=== PATIENT | female | born 1960 | race Caucasian/White ===

== ENCOUNTER 2017-03-27 11:57 | Inpatient (IN) | payer MEDICAID ==
[~2017-03-27] VITALS: Ht 170.2 cm; Wt 74.4 kg
[2017-03-27] VITALS (12 sets, daily range): BP systolic 113–153; BP diastolic 73–88
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
--- NOTE | ~2017-03-27 | CON ---
[place], [place] REPORT OF CONSULTATION NAME: ANA WONG UNIT #: [id number] ROOM: 412 DOCTOR: RADHA HAZEL MD BIRTHDATE: [birth year] DOS: 03/28/2017 CHIEF COMPLAINT: Chest pain. HISTORY OF PRESENT ILLNESS: The patient is a 56-year-old woman who has no previous history of coronary artery disease. For the last 2 months, she has had chest pain. She states that she fell down some stairs and injured her back and face. At about that same time, she began noticing the chest pain. The chest pain comes and goes and can lasts up to hours at a time. It is made worse by deep breathing and cough. Nothing much makes it better. It is not associated with diaphoresis, nausea, lightheadedness or syncope. Yesterday, the patient was contemplating suicide but decided against it and came to the Emergency Room instead. In the Emergency Room, she mentioned her chest pain and was therefore hospitalized for suicidal ideation and chest pain. Thus far, she has ruled out for an acute myocardial infarction and her EKG shows no acute changes. Enzymes have been negative. PAST MEDICAL HISTORY: Positive for the followin. Essential hypertension. 2. Hypothyroidism, on replacement. 3. Depression with bipolar disorder. 4. No previous history of myocardial infarction, stroke, diabetes or known hyperlipidemia. FAMILY HISTORY: Negative for early coronary artery disease. REVIEW OF SYSTEMS: The patient denies diplopia or loss of vision. She denies syncope, but she does have episodes of lightheadedness. She denies nausea or vomiting. She denies fevers, chills, sweats or recent weight change. She does admit to depression and anxiety. She denies any focal weakness. She denies bleeding from her nose or mouth. She denies blood in her stools or urine. She denies change in bowel or bladder habits. She denies any skin rashes. She states that she does occasionally get some ankle swelling, but denies any blood clots in her legs. She denies claudications. The remainder of the review of systems is negative except as noted above. SOCIAL HISTORY: The patient smokes about a half pack a day and does consume alcohol routinely. MEDICATIONS: Prior to admission included olopatadine eyedrops twice a day, amitriptyline 50 mg at bedtime, aripiprazole 15 mg at bedtime, vitamin D 1000 units daily, diazepam 5-10 mg t.i.d. as needed, iron sulfate 325 mg daily, hydroxyzine 25 mg t.i.d. p.r.n., lamotrigine 100 mg b.i.d., levothyroxine 112 mcg daily, losartan with hydrochlorothiazide 50/12/5 one daily, olanzapine 10 mg daily, omeprazole 20 mg daily and sertraline 200 mg at bedtime. ALLERGIES: The patient lists allergies to PENICILLINS and CODEINE. PHYSICAL EXAMINATION: [place], [place] REPORT OF CONSULTATION NAME: ANA WONG UNIT #: [id number] ROOM: 412 DOCTOR: RADHA HAZEL MD BIRTHDATE: [birth year] GENERAL: The patient is well-nourished white female who is awake, alert and oriented. VITAL SIGNS: Pulse is 92 and regular, blood pressure is 162/90. She is afebrile. She weighs 74.4 kg and has a body mass index of 25.7. HEENT: Normocephalic. She does have a bruise over her right cheek. Extraocular muscles are intact. Pupils are equal, round and react to light. The oral mucosa is moist. Tongue is midline. NECK: Supple. She has no jugular distention. Carotids are full. She has no bruits. She has no neck or supraclavicular masses. LUNGS: Respirations are unlabored. Her chest is clear to auscultation and percussion with decreased breath sounds at the bases and mild expiratory prolongation, but no wheezes or rales. Her chest wall is tender over the left anterior parasternal region and this does reproduce most of her chest pains. CARDIOVASCULAR: Heart has a regular rhythm with a soft S4 gallop, but no S3 or murmur. The PMI is not displaced. There is no precordial heave, lift or thrill. ABDOMEN: Soft and normally active without masses, organomegaly or bruits. EXTREMITIES: Showed no edema. Peripheral pulses were palpable in the feet. LABORATORY DATA: Her electrocardiogram shows sinus tachycardia with an otherwise normal tracing. Chest x-ray was considered normal. Hemoglobin is 13 with hematocrit 38.7. There are 6100 white cells, 308,000 platelets. Sodium is 139, potassium 4.3, BUN 12, creatinine 0.57. TSH was less than 0.005. Troponin levels have been negative x 3. IMPRESSION: 1. Atypical chest pain which is reproduced by palpation and increased by cough and deep breath, almost certainly this is musculoskeletal in origin. 2. Hypertension. 3. Hyperlipidemia. 4. Ongoing cigarette abuse. 5. Depression and anxiety. PLAN: I think that it is unlikely that she has coronary artery disease, but she does have risk factors. We will therefore proceed with an exercise myocardial stress test. If that is normal, then I would reassure the patient and try to treat her pain symptomatically. She certainly should stop smoking. Further evaluation per the psych service will also be helpful. I thank the hospitalist for asking our advice regarding her care. [place], [place] REPORT OF CONSULTATION NAME: ANA WONG UNIT #: [id number] ROOM: 412 DOCTOR: RADHA HAZEL MD BIRTHDATE: [birth year] RADHA HAZEL MD CM:CONSTR:REPORT OF CONSULTATION 1200 03/28/17 1221 interface
[2017-03-27 12:44] LABS: BASO % 0.5 % (0.0-1.0); EOS # 0.2 10*3/uL (0.0-0.4); EOS % 1.8 % (1.0-4.0); HEMOGLOBIN 12.3 g/dl (12.0-16.0); LYMPH # 4.5 10*3/uL (1.3-4.4); LYMPH % 52.8 % (27.0-41.0); MEAN CELL VOLUME 92.3 fl (81.0-99.0); MEAN CORPUSCULAR HGB 30.7 pg (27.0-31.0); MEAN CORPUSCULAR HGB CONC 33.2 g/dl (33.0-37.0); MEAN PLATELET VOLUME 9.9 fl (9.6-12.3); MONO # 0.6 10*3/uL (0.1-1.0); MONO % 6.7 % (3.0-9.0); NEUT # 3.2 10*3/uL (2.3-7.9); PLATELET COUNT AUTOMATED 340 10*3/uL (130-400); RED BLOOD COUNT 4.01 10*6/uL (4.10-5.10); RED CELL DISTRI WIDTH 14.2 % (0-14.5); WHITE BLOOD COUNT 8.5 10*3/uL (4.8-10.8)
[2017-03-27 12:53] LABS: ACT PARTIAL THROMBO TIME 23.5 SECONDS (20.8-31.5)
[2017-03-27 13:04] LABS: ALBUMIN 3.4 gm/dl (3.1-4.5); ALKALINE PHOSPHATASE 129 U/L (45-117); BUN 15 mg/dl (7-24); CHLORIDE 110 mmol/L (98-107); CREATININE 0.71 mg/dL (0.55-1.02); POTASSIUM 3.8 mmol/L (3.5-5.1); SGOT/AST 36 IU/L (3-35); SGPT/ALT 39 U/L (12-78); SODIUM 143 mmol/L (136-145); TOTAL PROTEIN 7.3 gm/dL (6.4-8.2)
[2017-03-27 13:06] LABS: TROPONIN I < 0.015 ng/ml (<0.045)
[2017-03-27 13:10] LABS: URINE AMPHETAMINES < 1000 (1000ng/ml); URINE BARBITURATES < 200 (200ng/ml); URINE BENZODIAZEPINES > 200 (200ng/ml); URINE CANNABINOIDS (THC) < 50 (50ng/ml); URINE COCAINE < 300 (300ng/ml); URINE METHADONE < 300 (300ng/ml); URINE OPIATES < 300 (300ng/ml)
[2017-03-27 13:11] LABS: URINE PHENCYCLIDINE < 25 (25ng/ml)
[2017-03-27 13:12] LABS: ACETAMINOPHEN (TYLENOL) < 2.0 ug/ml (10-30)
[2017-03-27 13:42] LABS: BILIRUBIN NEGATIVE (NEGATIVE); BLOOD NEGATIVE (NEGATIVE); CLARITY CLEAR (CLEAR); COLOR YELLOW (YELLOW); GLUCOSE NEGATIVE (NEGATIVE); KETONE NEGATIVE (NEGATIVE); LEUKO ESTERASE NEGATIVE (NEGATIVE); NITRITE NEGATIVE (NEGATIVE); PH 5.5 (5.0-9.0); SPECIFIC GRAVITY 1.015 (1.005-1.030); UROBILINOGEN 0.2 E.U./dl (0.2-1.0)
[2017-03-27 13:56] LABS: BACTERIA TRACE
[2017-03-27] MEDS ORDERED: LEVOTHYROXINE100 MC1 PO (18:14)
[2017-03-27] MEDS ORDERED: FEROSUL325 MG PO (18:15)
[2017-03-27] MEDS ORDERED: VITAMIN D-32000 UNIT PO (18:15)
[2017-03-27] MEDS ORDERED: OMEPRAZOLE D/R20 MG PO (18:16)
[2017-03-27] MEDS ORDERED: HYDROXYZINE PAM25 M1 PO (18:16)
[2017-03-27] MEDS ORDERED: DIAZEPAM10 M1 PO (18:17)
[2017-03-27] MEDS ORDERED: LOSARTAN-HCTZ1 EACH PO (18:17)
[2017-03-27] MEDS ORDERED: LAMOTRIGINE100 MG PO (18:17)
[2017-03-27] MEDS ORDERED: OLOPATADINE HCL5 ML OD (18:18)
[2017-03-27] MEDS ORDERED: AMITRIPTYLINE50 MG PO (18:18)
[2017-03-27] MEDS ORDERED: OLANZAPINE10 MG PO (18:18)
[2017-03-27] MEDS ORDERED: SERTRALINE HYD100 MG PO ×2 (18:19→21:37)
[2017-03-27] MEDS ORDERED: DOXEPIN25 MG PO (21:39)
[2017-03-27] MEDS ORDERED: BUTALB-ACETAMI1 EACH PO (21:41)
[2017-03-27] MEDS ORDERED: ARIPIPRAZOLE15 MG PO (21:44)
[2017-03-27] MEDS ORDERED: CLONAZEPAM0.5 M2 PO (21:45)
[2017-03-27] MEDS ORDERED: LEVOXYL112 MCG PO (21:49)
[2017-03-27] MEDS ORDERED: ZYPREXA10 M1 PO (21:54)
[2017-03-28] VITALS: BP 138/72
[2017-03-28 04:00] VITALS: BP 156/92
[2017-03-28 06:25] LABS: BASO % 0.2 % (0.0-1.0); HEMATOCRIT 38.7 % (37.0-47.0); LYMPH % 16.8 % (27.0-41.0); MEAN CORPUSCULAR HGB 31.3 pg (27.0-31.0); MEAN CORPUSCULAR HGB CONC 33.6 g/dl (33.0-37.0); MEAN PLATELET VOLUME 10.5 fl (9.6-12.3); MONO # 0.1 10*3/uL (0.1-1.0); MONO % 0.8 % (3.0-9.0); NEUT % 81.7 % (47.0-73.0); PLATELET COUNT AUTOMATED 308 10*3/uL (130-400); RED BLOOD COUNT 4.16 10*6/uL (4.10-5.10); RED CELL DISTRI WIDTH 14.2 % (0-14.5); WHITE BLOOD COUNT 6.1 10*3/uL (4.8-10.8)
[2017-03-28 06:35] LABS: BUN 12 mg/dl (7-24); CHLORIDE 108 mmol/L (98-107); CREATININE 0.57 mg/dL (0.55-1.02); PHOSPHOROUS 2.3 mg/dL (2.5-4.9); POTASSIUM 4.3 mmol/L (3.5-5.1); SODIUM 139 mmol/L (136-145)
[2017-03-28 06:43] LABS: CHOLESTEROL 263 mg/dL (<200); HDL CHOLESTEROL 56 mg/dl (40-60); LDL CHOLESTEROL 185 mg/dL (9-159); TRIGLYCERIDES 112 mg/dl (<150); VLDL CHOLESTEROL 22 mg/dL (6-40)
[2017-03-28 07:55] LABS: THYROID STIM HORMONE (HS) < 0.005 uIU/ml (0.358-4.75)
[2017-03-28 08:00] VITALS: BP 162/90
[2017-03-28] MEDS ORDERED: VALIUM10 MG PO (09:22)
[2017-03-28 12:00] VITALS: BP 157/61
[2017-03-28] MEDS ORDERED: DULOXETINE HCL30 MG PO (15:51)
[2017-03-28] MEDS ORDERED: PRAVACHOL20 MG PO (15:53)
[2017-03-28 16:00] VITALS: BP 150/81
== END 2017-03-28 17:47 | disposition home or self-care (01) | DRG 205 ==
LOC: ED 11:57 → 4E 19:58 → EDHOLD 19:58 → 4E 20:35
PROVIDERS: Emergency Medicine; Student in an Organized Health Care Education/Training Program
PROC: 4A02XM4 Measurement of Cardiac Total Activity, External Approach (ICD-10-PCS; principal; 2017-03-28)
DX: M94.0 Chondrocostal junction syndrome [Tietze] (principal); J18.9 Pneumonia, unspecified organism; E87.8 Other disorders of electrolyte and fluid balance, not elsewhere classified; R45.851 Suicidal ideations; F31.30 Bipolar disorder, current episode depressed, mild or moderate severity, unspecified; I25.10 Atherosclerotic heart disease of native coronary artery without angina pectoris; B34.9 Viral infection, unspecified; E03.9 Hypothyroidism, unspecified; F17.210 Nicotine dependence, cigarettes, uncomplicated; J45.909 Unspecified asthma, uncomplicated; F41.1 Generalized anxiety disorder; I10 Essential (primary) hypertension; F10.129 Alcohol abuse with intoxication, unspecified; D72.820 Lymphocytosis (symptomatic); R00.0 Tachycardia, unspecified; E78.00 Pure hypercholesterolemia, unspecified; F40.00 Agoraphobia, unspecified; Z82.49 Family history of ischemic heart disease and other diseases of the circulatory system; Z88.0 Allergy status to penicillin; Z88.5 Allergy status to narcotic agent; Z90.710 Acquired absence of both cervix and uterus; Z79.899 Other long term (current) drug therapy; K21.9 Gastro-esophageal reflux disease without esophagitis; F41.9 Anxiety disorder, unspecified

== ENCOUNTER 2017-06-03 12:02 | Emergency (ER) | payer MEDICAID ==
[~2017-06-03] VITALS: Wt 72.6 kg
[~2017-06-03 12:02] MED LIST: AMITRIPTYLINE50 MG PO; ARIPIPRAZOLE15 MG PO; BUTALB-ACETAMI1 EACH PO; CLONAZEPAM0.5 M2 PO; DIAZEPAM10 M1 PO; DOXEPIN25 MG PO; DULOXETINE HCL30 MG PO; FEROSUL325 MG PO; HYDROXYZINE PAM25 M1 PO; LAMOTRIGINE100 MG PO; LEVOTHYROXINE100 MC1 PO; LEVOXYL112 MCG PO; LOSARTAN-HCTZ1 EACH PO; OLANZAPINE10 MG PO; OLOPATADINE HCL5 ML OD; OMEPRAZOLE D/R20 MG PO; PRAVACHOL20 MG PO; SERTRALINE HYD100 MG PO; VALIUM10 MG PO; VITAMIN D-32000 UNIT PO; ZYPREXA10 M1 PO
[2017-06-03] MEDS ORDERED: NAPROSYN500 MG PO (13:47)
== END 2017-06-03 14:06 | disposition home or self-care (01) ==
LOC: ED 12:02
DX: S62.511A Displaced fracture of proximal phalanx of right thumb, initial encounter for closed fracture (principal); I10 Essential (primary) hypertension; E78.00 Pure hypercholesterolemia, unspecified; E03.9 Hypothyroidism, unspecified; J45.909 Unspecified asthma, uncomplicated; Z98.890 Other specified postprocedural states; Z88.0 Allergy status to penicillin; Z88.5 Allergy status to narcotic agent; Z79.899 Other long term (current) drug therapy; W18.09XA Striking against other object with subsequent fall, initial encounter; Y93.89 Activity, other specified; Y92.89 Other specified places as the place of occurrence of the external cause; Y99.9 Unspecified external cause status

== ENCOUNTER 2019-10-26 06:20 | Emergency (ER) | payer MEDICAID ==
[~2019-10-26] VITALS: Ht 170.1 cm; Wt 65.3 kg
[~2019-10-26 06:20] MED LIST changes: +NAPROSYN500 MG PO
[2019-10-26 07:05] LABS: BASO % 0.3 % (0.0-1.0); EOS # 0.1 10*3/uL (0.0-0.4); EOS % 0.8 % (1.0-4.0); HEMATOCRIT 35.4 % (37.0-47.0); LYMPH % 28.6 % (27.0-41.0); MEAN CELL VOLUME 94.9 fl (81.0-99.0); MEAN CORPUSCULAR HGB 32.7 pg (27.0-31.0); MEAN CORPUSCULAR HGB CONC 34.5 g/dl (33.0-37.0); MEAN PLATELET VOLUME 9.7 fl (9.6-12.3); MONO # 0.5 10*3/uL (0.1-1.0); MONO % 7.3 % (3.0-9.0); NEUT # 4.5 10*3/uL (2.3-7.9); NEUT % 62.9 % (47.0-73.0); PLATELET COUNT AUTOMATED 288 10*3/uL (130-400); RED BLOOD COUNT 3.73 10*6/uL (4.10-5.10); RED CELL DISTRI WIDTH 12.5 % (0-14.5); WHITE BLOOD COUNT 7.1 10*3/uL (4.8-10.8)
[2019-10-26 07:21] LABS: ALBUMIN 3.4 gm/dl (3.1-4.5); ALKALINE PHOSPHATASE 102 U/L (45-117); BUN 4 mg/dl (7-24); CHLORIDE 102 mmol/L (98-107); CREATININE 0.62 mg/dL (0.55-1.02); LIPASE 52 U/L (73-393); POTASSIUM 3.2 mmol/L (3.5-5.1); SGOT/AST 14 IU/L (3-35); SGPT/ALT 19 U/L (12-78); SODIUM 132 mmol/L (136-145)
[2019-10-26 07:25] LABS: BILIRUBIN NEGATIVE; BLOOD NEGATIVE (NEGATIVE); CLARITY CLEAR (CLEAR); COLOR YELLOW (YELLOW); GLUCOSE NEGATIVE; KETONE NEGATIVE; PH 7.5 (4.5-8.0); SPECIFIC GRAVITY < 1.005 (1.001-1.030)
[2019-10-26 07:26] LABS: LEUKO ESTERASE NEGATIVE (NEGATIVE); NITRITE NEGATIVE (NEGATIVE); UROBILINOGEN 0.2 E.U./dl (0.0-1.0)
[2019-10-26 07:28] LABS: BACTERIA TRACE; CALCIUM OXALATE CRYSTALS TRACE
[2019-10-26] MEDS ORDERED: ZOFRAN4 MG PO (09:30)
== END 2019-10-26 09:37 | disposition home or self-care (01) ==
LOC: ED 06:20
PROVIDERS: Emergency Medicine; Emergency Medicine Emergency Medical Services
DX: E87.1 Hypo-osmolality and hyponatremia (principal); E87.6 Hypokalemia; R11.2 Nausea with vomiting, unspecified; R19.7 Diarrhea, unspecified; I10 Essential (primary) hypertension; E03.9 Hypothyroidism, unspecified; J45.909 Unspecified asthma, uncomplicated; E78.00 Pure hypercholesterolemia, unspecified; F17.200 Nicotine dependence, unspecified, uncomplicated; Z88.0 Allergy status to penicillin; Z88.6 Allergy status to analgesic agent; Z79.899 Other long term (current) drug therapy

== ENCOUNTER 2020-01-11 13:11 | Inpatient (IN) | payer MEDICAID ==
[~2020-01-11] VITALS: Ht 170.1 cm; Wt 64.7 kg
[~2020-01-11 13:11] MED LIST changes: +ZOFRAN4 MG PO
[2020-01-11 13:13] VITALS: BP 183/106
[2020-01-11 13:38] LABS: BASO % 0.2 % (0.0-1.0); EOS % 0.4 % (1.0-4.0); HEMATOCRIT 37.3 % (37.0-47.0); LYMPH # 2.6 10*3/uL (1.3-4.4); LYMPH % 30.8 % (27.0-41.0); MEAN CELL VOLUME 96.1 fl (81.0-99.0); MEAN CORPUSCULAR HGB 32.7 pg (27.0-31.0); MEAN PLATELET VOLUME 9.6 fl (9.6-12.3); MONO # 0.4 10*3/uL (0.1-1.0); MONO % 5.1 % (3.0-9.0); NEUT # 5.2 10*3/uL (2.3-7.9); NEUT % 63.1 % (47.0-73.0); PLATELET COUNT AUTOMATED 304 10*3/uL (130-400); RED BLOOD COUNT 3.88 10*6/uL (4.10-5.10); WHITE BLOOD COUNT 8.3 10*3/uL (4.8-10.8)
[2020-01-11 13:49] LABS: ACT PARTIAL THROMBO TIME 25.3 SECONDS (20.0-32.1)
[2020-01-11 13:59] LABS: ALBUMIN 3.2 gm/dl (3.1-4.5); ALKALINE PHOSPHATASE 114 U/L (45-117); BUN 4 mg/dl (7-24); CHLORIDE 98 mmol/L (98-107); CPK 69 U/L (26-192); CREATININE 0.52 mg/dL (0.55-1.02); LIPASE 53 U/L (73-393); POTASSIUM 3.6 mmol/L (3.5-5.1); SGOT/AST 17 IU/L (3-35); SGPT/ALT 20 U/L (12-78); SODIUM 131 mmol/L (136-145); TOTAL PROTEIN 6.7 gm/dL (6.4-8.2); TROPONIN I < 0.015 ng/ml (<0.045)
[2020-01-11 15:03] LABS: BILIRUBIN Negative (Negative); BLOOD Negative (Negative); CLARITY Clear (Clear); COLOR Yellow (Yellow); GLUCOSE Negative (Negative); KETONE Negative (Negative); LEUKO ESTERASE Negative (Negative); NITRITE Negative (Negative); UROBILINOGEN 0.2 E.U./dl (0.0-1.0)
[2020-01-11 15:09] LABS: BACTERIA TRACE; WBC 0-2 wbc/hpf (0-5)
[2020-01-11 15:10] LABS: URINE AMPHETAMINES < 1000 (1000ng/ml); URINE BARBITURATES > 200 (200ng/ml); URINE BENZODIAZEPINES < 200 (200ng/ml); URINE CANNABINOIDS (THC) < 50 (50ng/ml); URINE COCAINE < 300 (300ng/ml); URINE METHADONE < 300 (300ng/ml); URINE OPIATES < 300 (300ng/ml)
[2020-01-11 15:14] LABS: URINE PHENCYCLIDINE < 25 (25ng/ml)
--- NOTE | 2020-01-11 15:15 | NUR ---
SPOKE WITH PT'S . SAMAN [phone]
--- NOTE | 2020-01-11 16:13 | NUR ---
1400mL OUTPUT OF URINE FROM CATHETER
[2020-01-11 16:15] VITALS: BP 174/92
--- NOTE | 2020-01-11 17:32 | NUR ---
PT IS STILL PRETTY LETHARGIC. SHE DOES AWAKEN EASIER THAN EARLIER. PT IS ABLE TO ANSWER SOME QUESTIONS, BUT IS A POOR HISTORIAN.
[2020-01-11 18:08] VITALS: BP 169/100
[2020-01-11 18:55] VITALS: BP 186/95
--- NOTE | 2020-01-11 21:05 | NUR ---
SPOKE WITH DR. VIRAMONTES REGARDING BLOOD PRESSURE AND UNABLE TO VERIFY MEDICATIONS AT THIS TIME HE STATES TO CALL [facility] IN THE AM TO VERIFY MEDICATION AND TO HANG ONE MORE BAG OF FLUIDS FOR A TOTAL OF TWO BAGS SINCE THE OTHER WAS GIVEN IN ER.
[2020-01-12] VITALS: BP 156/78
[2020-01-12 04:00] VITALS: BP 155/86
--- NOTE | 2020-01-12 06:39 | NUR ---
new IV in Right lower arm, pt tolerated well. Call light in hand
[2020-01-12 06:55] LABS: BASO % 0.2 % (0.0-1.0); EOS % 0.2 % (1.0-4.0); HEMATOCRIT 33.9 % (37.0-47.0); LYMPH # 1.7 10*3/uL (1.3-4.4); LYMPH % 16.5 % (27.0-41.0); MEAN CELL VOLUME 96.6 fl (81.0-99.0); MEAN CORPUSCULAR HGB CONC 34.2 g/dl (33.0-37.0); MEAN PLATELET VOLUME 9.7 fl (9.6-12.3); MONO # 0.6 10*3/uL (0.1-1.0); MONO % 5.7 % (3.0-9.0); NEUT # 8.1 10*3/uL (2.3-7.9); PLATELET COUNT AUTOMATED 286 10*3/uL (130-400); RED BLOOD COUNT 3.51 10*6/uL (4.10-5.10); RED CELL DISTRI WIDTH 12.4 % (0-14.5); WHITE BLOOD COUNT 10.4 10*3/uL (4.8-10.8)
[2020-01-12 07:05] LABS: ACT PARTIAL THROMBO TIME 23.6 SECONDS (20.0-32.1)
[2020-01-12 07:32] LABS: ALKALINE PHOSPHATASE 112 U/L (45-117); BUN 4 mg/dl (7-24); CHLORIDE 109 mmol/L (98-107); CHOLESTEROL 165 mg/dL (<200); CREATININE 0.44 mg/dL (0.55-1.02); FREE T4 1.03 ng/dl (0.76-1.46); HDL CHOLESTEROL 81 mg/dl (40-60); LDL CHOLESTEROL 67 mg/dL (9-159); SGOT/AST 14 IU/L (3-35); SGPT/ALT 17 U/L (12-78); SODIUM 139 mmol/L (136-145); TOTAL PROTEIN 6.1 gm/dL (6.4-8.2); TRIGLYCERIDES 83 mg/dl (<150); VLDL CHOLESTEROL 17 mg/dL (6-40)
[2020-01-12 07:36] LABS: THYROID STIM HORMONE (HS) 0.808 uIU/ml (0.358-4.75)
--- NOTE | 2020-01-12 07:40 | NUR ---
Report received. Patient resting in bed. No distress noted. Safety maintained.
[2020-01-12 08:00] VITALS: BP 146/77
[2020-01-12 09:55] LABS: VITAMIN D, 25-HYDROXY 48.7 ng/mL (30-100)
--- NOTE | 2020-01-12 09:58 | NUR ---
Patient reported that she would like to leave. IV/nickerson/monitor removed. No distress reported. Saefty maintained.
== END 2020-01-12 09:58 | disposition home or self-care (01) | DRG 640 ==
LOC: ED 13:11 → EDHOLD 16:56 → 5E 17:53
PROVIDERS: Emergency Medicine; Hospitalist; ADMIT Student in an Organized Health Care Education/Training Program; ATTEND Student in an Organized Health Care Education/Training Program
DX: E87.1 Hypo-osmolality and hyponatremia (principal); G93.41 Metabolic encephalopathy; J90 Pleural effusion, not elsewhere classified; E87.2 Acidosis; R73.9 Hyperglycemia, unspecified; F41.1 Generalized anxiety disorder; F40.00 Agoraphobia, unspecified; F31.9 Bipolar disorder, unspecified; I10 Essential (primary) hypertension; J45.909 Unspecified asthma, uncomplicated; E03.9 Hypothyroidism, unspecified; F17.290 Nicotine dependence, other tobacco product, uncomplicated; R10.84 Generalized abdominal pain; E78.00 Pure hypercholesterolemia, unspecified; K20.90 Esophagitis, unspecified without bleeding; K52.9 Noninfective gastroenteritis and colitis, unspecified; I16.0 Hypertensive urgency; K21.9 Gastro-esophageal reflux disease without esophagitis; Z53.29 Procedure and treatment not carried out because of patient's decision for other reasons; E78.5 Hyperlipidemia, unspecified; Z87.11 Personal history of peptic ulcer disease; Z88.0 Allergy status to penicillin; Z88.5 Allergy status to narcotic agent; Z90.710 Acquired absence of both cervix and uterus; Z80.0 Family history of malignant neoplasm of digestive organs; Z82.49 Family history of ischemic heart disease and other diseases of the circulatory system; Z79.899 Other long term (current) drug therapy

== ENCOUNTER 2020-06-09 18:18 | Emergency (ER) | payer MEDICAID ==
[~2020-06-09] VITALS: Ht 170.1 cm; Wt 63.5 kg
[~2020-06-09 18:18] MED LIST changes: -LEVOXYL112 MCG PO; +LEVOXYL125 MCG PO; -OMEPRAZOLE D/R20 MG PO; +OMEPRAZOLE40 MG PO
[2020-06-09 19:29] LABS: BASO % 0.3 % (0.0-1.0); EOS % 0.1 % (1.0-4.0); HEMATOCRIT 38.1 % (37.0-47.0); LYMPH # 2.2 10*3/uL (1.3-4.4); LYMPH % 19.2 % (27.0-41.0); MEAN CORPUSCULAR HGB 32.8 pg (27.0-31.0); MEAN CORPUSCULAR HGB CONC 32.8 g/dl (33.0-37.0); MEAN PLATELET VOLUME 10.3 fl (9.6-12.3); MONO # 0.9 10*3/uL (0.1-1.0); MONO % 7.9 % (3.0-9.0); NEUT # 8.2 10*3/uL (2.3-7.9); NEUT % 72.1 % (47.0-73.0); PLATELET COUNT AUTOMATED 228 10*3/uL (130-400); RED BLOOD COUNT 3.81 10*6/uL (4.10-5.10); WHITE BLOOD COUNT 11.4 10*3/uL (4.8-10.8)
[2020-06-09 19:55] LABS: ALBUMIN 3.5 gm/dl (3.1-4.5); BUN 12 mg/dl (7-24); CHLORIDE 107 mmol/L (98-107); CREATININE 0.84 mg/dL (0.55-1.02); POTASSIUM 3.8 mmol/L (3.5-5.1); SGOT/AST 20 IU/L (3-35); SGPT/ALT 25 U/L (12-78); SODIUM 136 mmol/L (136-145); TOTAL PROTEIN 7.1 gm/dL (6.4-8.2)
[2020-06-09 19:58] LABS: ALKALINE PHOSPHATASE 120 U/L (45-117)
[2020-06-09 19:59] LABS: ETHYL ALCOHOL < 3.0 mg/dl (<3); TROPONIN I < 0.015 ng/ml (<0.045)
[2020-06-09 20:23] LABS: BILIRUBIN Negative (Negative); BLOOD Negative (Negative); CLARITY Clear (Clear); COLOR Yellow (Yellow); GLUCOSE Negative (Negative); KETONE Negative (Negative); LEUKO ESTERASE Negative (Negative); NITRITE Negative (Negative); PH 5.5 (4.5-8.0); UROBILINOGEN 0.2 E.U./dl (0.0-1.0)
[2020-06-09 20:31] LABS: URINE AMPHETAMINES < 1000 (1000ng/ml); URINE BARBITURATES > 200 (200ng/ml); URINE BENZODIAZEPINES < 200 (200ng/ml); URINE CANNABINOIDS (THC) < 50 (50ng/ml); URINE COCAINE < 300 (300ng/ml); URINE METHADONE < 300 (300ng/ml); URINE OPIATES < 300 (300ng/ml)
[2020-06-09 20:39] LABS: EPITHELIAL CELLS 0-2; FINE GRANULAR CAST 0-2; HYALINE CAST 0-2; WBC 0-2 wbc/hpf (0-5)
[2020-06-09 20:45] LABS: URINE PHENCYCLIDINE < 25 (25ng/ml)
== END 2020-06-09 23:00 | disposition admitted as inpatient to this hospital (09) ==
LOC: ED 18:18
PROVIDERS: Physician Assistant
DX: S42.291A Other displaced fracture of upper end of right humerus, initial encounter for closed fracture (principal); R55 Syncope and collapse; Z88.0 Allergy status to penicillin; Z88.5 Allergy status to narcotic agent; Z79.899 Other long term (current) drug therapy; Z90.711 Acquired absence of uterus with remaining cervical stump; Z98.890 Other specified postprocedural states

== ENCOUNTER 2020-06-10 16:54 | Inpatient (IN) | payer MEDICAID ==
[~2020-06-10] VITALS: Ht 170.2 cm; Wt 74.2 kg
[2020-06-10 17:04] VITALS: BP 109/69
[2020-06-10 17:36] LABS: BASO % 0.4 % (0.0-1.0); EOS % 0.5 % (1.0-4.0); HEMATOCRIT 31.9 % (37.0-47.0); LYMPH # 2.4 10*3/uL (1.3-4.4); LYMPH % 29.9 % (27.0-41.0); MEAN CELL VOLUME 98.2 fl (81.0-99.0); MEAN CORPUSCULAR HGB 32.9 pg (27.0-31.0); MEAN CORPUSCULAR HGB CONC 33.5 g/dl (33.0-37.0); MEAN PLATELET VOLUME 10.2 fl (9.6-12.3); MONO # 0.8 10*3/uL (0.1-1.0); MONO % 9.4 % (3.0-9.0); NEUT # 4.9 10*3/uL (2.3-7.9); NEUT % 59.7 % (47.0-73.0); PLATELET COUNT AUTOMATED 208 10*3/uL (130-400); RED BLOOD COUNT 3.25 10*6/uL (4.10-5.10); RED CELL DISTRI WIDTH 12.1 % (0-14.5); WHITE BLOOD COUNT 8.2 10*3/uL (4.8-10.8)
[2020-06-10 17:53] LABS: ACETAMINOPHEN (TYLENOL) 19.9 ug/ml (10-30); ALBUMIN 2.9 gm/dl (3.1-4.5); ALKALINE PHOSPHATASE 109 U/L (45-117); BUN 11 mg/dl (7-24); CHLORIDE 109 mmol/L (98-107); CPK 170 U/L (26-192); CREATININE 0.77 mg/dL (0.55-1.02); LIPASE 46 U/L (73-393); POTASSIUM 3.5 mmol/L (3.5-5.1); SGOT/AST 21 IU/L (3-35); SGPT/ALT 22 U/L (12-78); SODIUM 135 mmol/L (136-145); TOTAL PROTEIN 6.3 gm/dL (6.4-8.2)
[2020-06-10 17:56] LABS: ETHYL ALCOHOL < 3.0 mg/dl (<3)
[2020-06-10 18:00] LABS: TROPONIN I < 0.015 ng/ml (<0.045)
[2020-06-10 18:02] LABS: ACT PARTIAL THROMBO TIME 25.1 SECONDS (20.0-32.1)
[2020-06-10 18:45] VITALS: BP 143/100
[2020-06-10 19:29] LABS: BILIRUBIN Negative (Negative); BLOOD Negative (Negative); CLARITY Clear (Clear); COLOR Yellow (Yellow); GLUCOSE Negative (Negative); KETONE Negative (Negative); LEUKO ESTERASE 2+ (Negative); NITRITE Positive (Negative); PH 5.5 (4.5-8.0); SPECIFIC GRAVITY 1.015 (1.001-1.030); UROBILINOGEN 0.2 E.U./dl (0.0-1.0)
[2020-06-10 19:37] LABS: URINE AMPHETAMINES < 1000 (1000ng/ml); URINE BARBITURATES > 200 (200ng/ml); URINE BENZODIAZEPINES < 200 (200ng/ml); URINE CANNABINOIDS (THC) < 50 (50ng/ml); URINE COCAINE < 300 (300ng/ml); URINE METHADONE < 300 (300ng/ml); URINE OPIATES < 300 (300ng/ml)
[2020-06-10 19:42] LABS: URINE PHENCYCLIDINE < 25 (25ng/ml)
[2020-06-10 19:47] LABS: BACTERIA 3+; WBC 51-100 wbc/hpf (0-5)
[2020-06-11] VITALS (7 sets, daily range): BP systolic 107–140; BP diastolic 64–87
[2020-06-11 05:39] LABS: ALBUMIN 2.7 gm/dl (3.1-4.5); ALKALINE PHOSPHATASE 94 U/L (45-117); BUN 8 mg/dl (7-24); CHLORIDE 111 mmol/L (98-107); CREATININE 0.61 mg/dL (0.55-1.02); POTASSIUM 3.2 mmol/L (3.5-5.1); SGOT/AST 22 IU/L (3-35); SGPT/ALT 27 U/L (12-78); SODIUM 138 mmol/L (136-145); TOTAL PROTEIN 6.2 gm/dL (6.4-8.2)
[2020-06-11 06:14] LABS: BASO % 0.5 % (0.0-1.0); EOS # 0.1 10*3/uL (0.0-0.4); EOS % 0.7 % (1.0-4.0); HEMATOCRIT 31.7 % (37.0-47.0); LYMPH # 2.5 10*3/uL (1.3-4.4); LYMPH % 29.5 % (27.0-41.0); MEAN CORPUSCULAR HGB 33.1 pg (27.0-31.0); MEAN PLATELET VOLUME 11.9 fl (9.6-12.3); MONO # 0.8 10*3/uL (0.1-1.0); MONO % 9.3 % (3.0-9.0); NEUT # 5.1 10*3/uL (2.3-7.9); NEUT % 59.4 % (47.0-73.0); PLATELET COUNT AUTOMATED 224 10*3/uL (130-400); RED BLOOD COUNT 3.35 10*6/uL (4.10-5.10); RED CELL DISTRI WIDTH 12.1 % (0-14.5); WHITE BLOOD COUNT 8.6 10*3/uL (4.8-10.8)
[2020-06-11 06:16] LABS: MEAN CELL VOLUME 94.6 fl (81.0-99.0)
[2020-06-11] MEDS ORDERED: FIORICET 50-301 EACH PO (09:20)
[2020-06-11] MEDS ORDERED: BENZONATATE200 MG PO (09:20)
[2020-06-11] MEDS ORDERED: LIPITOR40 MG PO (09:21)
[2020-06-11] MEDS ORDERED: VITAMIN D350 MCG PO (09:22)
[2020-06-11] MEDS ORDERED: PROZAC20 MG PO (09:23)
[2020-06-11] MEDS ORDERED: DOXEPIN HCL10 MG PO (09:25)
[2020-06-11] MEDS ORDERED: BUSPAR15 MG PO (09:27)
[2020-06-11] MEDS ORDERED: LAMICTAL25 MG PO (09:28)
[2020-06-11] MEDS ORDERED: PRAZOSIN HCL1 MG PO (09:31)
[2020-06-11] MEDS ORDERED: COZAAR50 M1 PO (09:32)
[2020-06-11] MEDS ORDERED: KLONOPIN0.5 MG PO (09:33)
[2020-06-11 12:30] LABS: ALBUMIN 2.9 gm/dl (3.1-4.5); BILIRUBIN, DIRECT 0.1 mg/dL (0.0-0.2); TOTAL PROTEIN 6.3 gm/dL (6.4-8.2)
[2020-06-12] VITALS (7 sets, daily range): BP systolic 121–158; BP diastolic 82–106
[2020-06-12 05:18] LABS: ALBUMIN 2.9 gm/dl (3.1-4.5); ALKALINE PHOSPHATASE 106 U/L (45-117); BUN 8 mg/dl (7-24); CHLORIDE 109 mmol/L (98-107); CREATININE 0.56 mg/dL (0.55-1.02); POTASSIUM 3.8 mmol/L (3.5-5.1); SGOT/AST 36 IU/L (3-35); SGPT/ALT 31 U/L (12-78); SODIUM 141 mmol/L (136-145); TOTAL PROTEIN 6.6 gm/dL (6.4-8.2)
[2020-06-12 06:29] LABS: BASO % 0.5 % (0.0-1.0); EOS # 0.1 10*3/uL (0.0-0.4); EOS % 1.4 % (1.0-4.0); HEMATOCRIT 33.9 % (37.0-47.0); LYMPH # 2.1 10*3/uL (1.3-4.4); LYMPH % 27.6 % (27.0-41.0); MEAN CORPUSCULAR HGB 32.8 pg (27.0-31.0); MEAN CORPUSCULAR HGB CONC 32.4 g/dl (33.0-37.0); MEAN PLATELET VOLUME 11.9 fl (9.6-12.3); MONO # 0.7 10*3/uL (0.1-1.0); MONO % 9.2 % (3.0-9.0); NEUT # 4.6 10*3/uL (2.3-7.9); PLATELET COUNT AUTOMATED 236 10*3/uL (130-400); RED BLOOD COUNT 3.35 10*6/uL (4.10-5.10); RED CELL DISTRI WIDTH 12.6 % (0-14.5); WHITE BLOOD COUNT 7.6 10*3/uL (4.8-10.8)
[2020-06-12 06:30] LABS: MEAN CELL VOLUME 101.2 fl (81.0-99.0)
[2020-06-13] VITALS: BP 148/88
[2020-06-13 04:00] VITALS: BP 150/80
[2020-06-13 04:28] LABS: BASO % 0.4 % (0.0-1.0); EOS # 0.1 10*3/uL (0.0-0.4); EOS % 1.1 % (1.0-4.0); HEMATOCRIT 32.3 % (37.0-47.0); LYMPH # 1.6 10*3/uL (1.3-4.4); LYMPH % 19.6 % (27.0-41.0); MEAN CELL VOLUME 99.4 fl (81.0-99.0); MEAN CORPUSCULAR HGB 33.2 pg (27.0-31.0); MEAN CORPUSCULAR HGB CONC 33.4 g/dl (33.0-37.0); MEAN PLATELET VOLUME 10.5 fl (9.6-12.3); MONO # 0.6 10*3/uL (0.1-1.0); MONO % 7.3 % (3.0-9.0); NEUT # 5.8 10*3/uL (2.3-7.9); NEUT % 71.4 % (47.0-73.0); PLATELET COUNT AUTOMATED 280 10*3/uL (130-400); RED BLOOD COUNT 3.25 10*6/uL (4.10-5.10); RED CELL DISTRI WIDTH 12.4 % (0-14.5); WHITE BLOOD COUNT 8.2 10*3/uL (4.8-10.8)
[2020-06-13 04:39] LABS: BUN 10 mg/dl (7-24); CHLORIDE 108 mmol/L (98-107); CREATININE 0.42 mg/dL (0.55-1.02); POTASSIUM 3.9 mmol/L (3.5-5.1); SODIUM 138 mmol/L (136-145)
[2020-06-13 07:26] VITALS: BP 140/82; BP 161/96
== END 2020-06-13 11:21 | disposition home or self-care (01) | DRG 917 ==
LOC: ED 16:54 → ICCU 18:30
PROVIDERS: Emergency Medicine; Internal Medicine; Student in an Organized Health Care Education/Training Program; ADMIT Student in an Organized Health Care Education/Training Program; ATTEND Student in an Organized Health Care Education/Training Program
DX: T50.994A Poisoning by other drugs, medicaments and biological substances, undetermined, initial encounter (principal); G93.41 Metabolic encephalopathy; S42.212A Unspecified displaced fracture of surgical neck of left humerus, initial encounter for closed fracture; N39.0 Urinary tract infection, site not specified; E87.1 Hypo-osmolality and hyponatremia; E44.0 Moderate protein-calorie malnutrition; E72.20 Disorder of urea cycle metabolism, unspecified; I16.0 Hypertensive urgency; D64.9 Anemia, unspecified; F40.00 Agoraphobia, unspecified; I10 Essential (primary) hypertension; E87.8 Other disorders of electrolyte and fluid balance, not elsewhere classified; R73.9 Hyperglycemia, unspecified; F41.1 Generalized anxiety disorder; J45.909 Unspecified asthma, uncomplicated; E78.00 Pure hypercholesterolemia, unspecified; F31.9 Bipolar disorder, unspecified; F17.210 Nicotine dependence, cigarettes, uncomplicated; E03.9 Hypothyroidism, unspecified; W10.8XXA Fall (on) (from) other stairs and steps, initial encounter; Y93.89 Activity, other specified; Y92.89 Other specified places as the place of occurrence of the external cause; Y99.8 Other external cause status; Z88.0 Allergy status to penicillin; Z88.5 Allergy status to narcotic agent; Z90.710 Acquired absence of both cervix and uterus; Z80.0 Family history of malignant neoplasm of digestive organs; Z82.49 Family history of ischemic heart disease and other diseases of the circulatory system; Z79.899 Other long term (current) drug therapy; Z68.25 Body mass index [BMI] 25.0-25.9, adult

== ENCOUNTER 2020-07-11 08:27 | Emergency (ER) | payer MEDICAID ==
[~2020-07-11] VITALS: Wt 99.8 kg
[~2020-07-11 08:27] MED LIST changes: +BENZONATATE200 MG PO; +BUSPAR15 MG PO; +COZAAR50 M1 PO; +DOXEPIN HCL10 MG PO; +FIORICET 50-301 EACH PO; +KLONOPIN0.5 MG PO; +LAMICTAL25 MG PO; +LIPITOR40 MG PO; +PRAZOSIN HCL1 MG PO; +PROZAC20 MG PO; +VITAMIN D350 MCG PO
== END 2020-07-11 09:54 | disposition left against medical advice (07) ==
LOC: ED 08:27
DX: S42.391A Other fracture of shaft of right humerus, initial encounter for closed fracture (principal); F17.200 Nicotine dependence, unspecified, uncomplicated; Z79.899 Other long term (current) drug therapy; Z88.0 Allergy status to penicillin; Z88.5 Allergy status to narcotic agent; X58.XXXA Exposure to other specified factors, initial encounter; Y93.89 Activity, other specified; Y92.89 Other specified places as the place of occurrence of the external cause; Y99.9 Unspecified external cause status

== ENCOUNTER 2020-08-12 07:06 | Emergency (ER) | payer MEDICAID ==
[2020-08-12 07:49] LABS: BASO % 0.4 % (0.0-1.0); EOS # 0.2 10*3/uL (0.0-0.4); HEMATOCRIT 38.5 % (37.0-47.0); LYMPH % 36.9 % (27.0-41.0); MEAN CELL VOLUME 96.5 fl (81.0-99.0); MEAN CORPUSCULAR HGB 32.6 pg (27.0-31.0); MEAN CORPUSCULAR HGB CONC 33.8 g/dl (33.0-37.0); MEAN PLATELET VOLUME 9.9 fl (9.6-12.3); MONO # 0.4 10*3/uL (0.1-1.0); NEUT # 2.8 10*3/uL (2.3-7.9); NEUT % 50.3 % (47.0-73.0); PLATELET COUNT AUTOMATED 303 10*3/uL (130-400); RED BLOOD COUNT 3.99 10*6/uL (4.10-5.10); RED CELL DISTRI WIDTH 11.7 % (0-14.5); WHITE BLOOD COUNT 5.5 10*3/uL (4.8-10.8)
[2020-08-12 08:12] LABS: ACETAMINOPHEN (TYLENOL) 11.2 ug/ml (10-30); ALBUMIN 3.4 gm/dl (3.1-4.5); ALKALINE PHOSPHATASE 103 U/L (45-117); BUN 9 mg/dl (7-24); CHLORIDE 100 mmol/L (98-107); CREATININE 0.55 mg/dL (0.55-1.02); POTASSIUM 3.9 mmol/L (3.5-5.1); SGOT/AST 15 IU/L (3-35); SGPT/ALT 21 U/L (12-78); SODIUM 129 mmol/L (136-145); TOTAL PROTEIN 7.1 gm/dL (6.4-8.2)
[2020-08-12 08:18] LABS: ETHYL ALCOHOL < 3.0 mg/dl (<3)
[2020-08-12 09:20] LABS: BILIRUBIN Negative (Negative); BLOOD Negative (Negative); CLARITY Clear (Clear); COLOR Yellow (Yellow); GLUCOSE Negative (Negative); KETONE Negative (Negative); LEUKO ESTERASE Negative (Negative); NITRITE Negative (Negative); SPECIFIC GRAVITY 1.015 (1.001-1.030); UROBILINOGEN 0.2 E.U./dl (0.0-1.0)
[2020-08-12 09:28] LABS: URINE AMPHETAMINES < 1000 (1000ng/ml); URINE BARBITURATES > 200 (200ng/ml); URINE BENZODIAZEPINES < 200 (200ng/ml); URINE CANNABINOIDS (THC) < 50 (50ng/ml); URINE COCAINE < 300 (300ng/ml); URINE METHADONE < 300 (300ng/ml); URINE OPIATES < 300 (300ng/ml)
[2020-08-12 09:32] LABS: URINE PHENCYCLIDINE < 25 (25ng/ml)
[2020-08-12 09:36] LABS: EPITHELIAL CELLS 0-2; WBC 0-2 wbc/hpf (0-5)
== END 2020-08-12 12:24 | disposition home or self-care (01) ==
LOC: ED 07:06
PROVIDERS: Emergency Medicine
DX: R41.0 Disorientation, unspecified (principal); T50.996A Underdosing of other drugs, medicaments and biological substances, initial encounter; F19.10 Other psychoactive substance abuse, uncomplicated; F17.200 Nicotine dependence, unspecified, uncomplicated; I10 Essential (primary) hypertension; E78.00 Pure hypercholesterolemia, unspecified; J45.909 Unspecified asthma, uncomplicated; Z79.899 Other long term (current) drug therapy; Z88.0 Allergy status to penicillin; Z88.5 Allergy status to narcotic agent; Y92.89 Other specified places as the place of occurrence of the external cause

== ENCOUNTER 2020-08-12 16:41 | Emergency (ER) | payer MEDICAID ==
[2020-08-12 16:41] VITALS: BP 117/82
[2020-08-12 17:11] LABS: BASO % 0.3 % (0.0-1.0); EOS # 0.2 10*3/uL (0.0-0.4); EOS % 2.2 % (1.0-4.0); HEMATOCRIT 36.1 % (37.0-47.0); LYMPH # 2.5 10*3/uL (1.3-4.4); LYMPH % 24.1 % (27.0-41.0); MEAN CELL VOLUME 94.5 fl (81.0-99.0); MEAN CORPUSCULAR HGB 32.5 pg (27.0-31.0); MEAN CORPUSCULAR HGB CONC 34.3 g/dl (33.0-37.0); MEAN PLATELET VOLUME 9.8 fl (9.6-12.3); MONO # 0.8 10*3/uL (0.1-1.0); MONO % 7.5 % (3.0-9.0); NEUT # 6.7 10*3/uL (2.3-7.9); NEUT % 65.6 % (47.0-73.0); PLATELET COUNT AUTOMATED 298 10*3/uL (130-400); RED BLOOD COUNT 3.82 10*6/uL (4.10-5.10); RED CELL DISTRI WIDTH 11.6 % (0-14.5); WHITE BLOOD COUNT 10.2 10*3/uL (4.8-10.8)
[2020-08-12 17:32] LABS: ACETAMINOPHEN (TYLENOL) 6.1 ug/ml (10-30); ALBUMIN 3.5 gm/dl (3.1-4.5); ALKALINE PHOSPHATASE 99 U/L (45-117); BUN 10 mg/dl (7-24); CHLORIDE 97 mmol/L (98-107); CPK 39 U/L (26-192); CREATININE 0.61 mg/dL (0.55-1.02); POTASSIUM 3.7 mmol/L (3.5-5.1); SGOT/AST 19 IU/L (3-35); SGPT/ALT 20 U/L (12-78); SODIUM 128 mmol/L (136-145); TOTAL PROTEIN 6.9 gm/dL (6.4-8.2)
[2020-08-12 17:36] LABS: ETHYL ALCOHOL < 3.0 mg/dl (<3); TROPONIN I < 0.015 ng/ml (<0.045)
[2020-08-12 17:58] LABS: BILIRUBIN Negative (Negative); BLOOD Negative (Negative); CLARITY Clear (Clear); COLOR Yellow (Yellow); GLUCOSE Negative (Negative); KETONE 1+ (Negative); LEUKO ESTERASE Negative (Negative); NITRITE Negative (Negative); PH 6.5 (4.5-8.0); SPECIFIC GRAVITY 1.025 (1.001-1.030)
[2020-08-12 18:07] LABS: URINE AMPHETAMINES < 1000 (1000ng/ml); URINE BARBITURATES > 200 (200ng/ml); URINE BENZODIAZEPINES < 200 (200ng/ml); URINE CANNABINOIDS (THC) < 50 (50ng/ml); URINE COCAINE < 300 (300ng/ml); URINE METHADONE < 300 (300ng/ml); URINE OPIATES < 300 (300ng/ml); URINE PHENCYCLIDINE < 25 (25ng/ml)
[2020-08-12 18:31] VITALS: BP 136/71
[2020-08-12 18:34] LABS: HYALINE CAST 0-2; MUCOUS 1+
[2020-08-13 06:41] LABS: BUN 10 mg/dl (7-24); CHLORIDE 101 mmol/L (98-107); CREATININE 0.41 mg/dL (0.55-1.02); POTASSIUM 4.5 mmol/L (3.5-5.1); SODIUM 128 mmol/L (136-145)
== END 2020-08-13 00:16 | disposition admitted as inpatient to this hospital (09) ==
LOC: ED 16:41 → EDHOLD 21:40 → 5E 22:25 → EDHOLD 22:25 → 5E 22:25
PROVIDERS: Emergency Medicine; Internal Medicine
DX: T65.91XA Toxic effect of unspecified substance, accidental (unintentional), initial encounter (principal); E87.1 Hypo-osmolality and hyponatremia; I10 Essential (primary) hypertension; E78.00 Pure hypercholesterolemia, unspecified; Z90.711 Acquired absence of uterus with remaining cervical stump; Z88.0 Allergy status to penicillin; Z88.5 Allergy status to narcotic agent; Z79.899 Other long term (current) drug therapy; Z98.890 Other specified postprocedural states; Y92.89 Other specified places as the place of occurrence of the external cause